=== PATIENT | female | born 1970 | race African-American/Black ===

== ENCOUNTER 2019-01-27 07:44 | Day surgery (SDC) | payer OTHER ==
[2019-01-26 09:00] VITALS: BMI 26.4
[2019-01-27 10:21] VITALS: TEMP 98.3
[2019-01-27 10:32] VITALS: PULSE 71
[2019-01-27 10:58] VITALS: BP 141/82
--- NOTE | 2019-01-28 14:28 | PATH ---
Surgical Pathology Report Patient Name: JEFFERY HARRIS [facility]. Rec. #: [id number] /Age/Gender: 1970 (Age: 48) / F Account: [id number] Location: [facility]-ENDOSCOPY Taken: 01/27/2019 Received: 01/27/2019 Reported: 01/28/2019 Physicians: Ishan Sales D.O. Specimen(s) Received A: BX DUODENUM SECOND PORTION AND BULB B: BX BODY AND ANGULARIS C: BX OF FUNDUS D: BX CECAL POLYP Clinical History Dyspepsia, screening, weight loss Postoperative diagnosis: Gastritis, colon polyp Final Diagnosis A. DUODENUM, SECOND PORTION AND BULB, BIOPSY: DUODENAL MUCOSA WITH NO PATHOLOGIC CHANGES. NO HISTOLOGIC EVIDENCE OF GLUTEN SENSITIVE ENTEROPATHY (CELIAC SPRUE) IDENTIFIED. B. STOMACH, ANGULARIS AND BODY, BIOPSY: SEVERE CHRONIC ACTIVE GASTRITIS. IMMUNOSTAIN FOR H. PYLORI IS POSITIVE (FEW ORGANISMS). C. STOMACH, FUNDUS, BIOPSY: SEVERE CHRONIC ACTIVE GASTRITIS. IMMUNOSTAIN FOR H. PYLORI IS POSITIVE (FEW ORGANISMS). D. COLON, CECUM, BIOPSY: COLONIC MUCOSA WITH NO PATHOLOGIC CHANGES. NO ADENOMATOUS OR HYPERPLASTIC CHANGES IDENTIFIED. Electronically Signed Roland Regan M.D. Gross Description A. Received in formalin, labeled "second portion duodenum and bulb" are 5 salazar, irregular portions of soft tissue ranging from 0.1-0.5 cm. in greatest dimension. The specimens are submitted in toto in one cassette. B. Received in formalin, labeled "angularis and body biopsy" are 5 salazar, irregular portions of soft tissue ranging from 0.2-0.5 cm. in greatest dimension. The specimens are submitted in toto in one cassette. C. Received in formalin, labeled "fundus biopsy" are 2 salazar, irregular portions of soft tissue measuring 0.2 and 0.3 cm. in greatest dimension. The specimens are submitted in toto in one cassette. D. Received in formalin, labeled "cecal polyp biopsy" is a salazar, irregular portion of soft tissue measuring 0.3 cm. in greatest dimension. The specimen is submitted in toto in one cassette. 01/27/2019 saudi01/27/2019
== END 2019-01-27 10:59 | disposition home or self-care (01) ==
LOC: JASU-ENDO 07:44
PROVIDERS: ATTEND Internal Medicine Gastroenterology
PROC: 0DB68ZX Excision of Stomach, Via Natural or Artificial Opening Endoscopic, Diagnostic (ICD-10-PCS; 2019-01-27)
PROC: 0DB98ZX Excision of Duodenum, Via Natural or Artificial Opening Endoscopic, Diagnostic (ICD-10-PCS; principal; 2019-01-27 09:00)
DX: K29.70 Gastritis, unspecified, without bleeding (principal); R63.4 Abnormal weight loss
CPT/HCPCS: 84703; 88305-TC; 88342-TC

== ENCOUNTER 2020-09-30 13:46 | Emergency (ER) | payer OTHER ==
[2020-09-30 13:57] VITALS: BP 165/95; PULSE 87; TEMP 98.4; BMI 27.4
== END 2020-09-30 15:15 | disposition home or self-care (01) ==
LOC: JERFT 13:46
DX: S60.932A Unspecified superficial injury of left thumb, initial encounter (principal)
CPT/HCPCS: 73130-TC-LT-FY; 99284-25